=== PATIENT | female | born 1970 ===

== ENCOUNTER 2019-06-05 09:43 | Outpatient (CLI) | payer OTHER ==
[~2019-06-05 09:43] MED LIST: IRON1 TA1; LODINE XL400 MG PO
== END 2019-06-05 09:45 | disposition home or self-care (01) ==
LOC: MAMO-SONO 09:43
DX: Z12.31 Encounter for screening mammogram for malignant neoplasm of breast (principal); N63.11 Unspecified lump in the right breast, upper outer quadrant